=== PATIENT | female | born 1960 | race Caucasian/White ===

== ENCOUNTER 2017-09-20 11:01 | Emergency (ER) | payer SELFPAY ==
[~2017-09-20] VITALS: Ht 162.6 cm; Wt 59.0 kg
[2017-09-20] MEDS ORDERED: ARTIFICIAL TEAR15 ML BOTH EYES (11:24)
[2017-09-20] MEDS ORDERED: TOBRAMYCIN5 ML OPHTHALM (11:24)
[2017-09-20 11:39] VITALS: BP 168/95
--- NOTE | 2017-09-26 00:25 | Emergency Room Report ---
History of Present Illness General Chief Complaint: Eye Problems Source: Patient Present Illness HPI Patient is a 57-year-old female presented after increased eye redness and discharge. The patient had family members at home with similar type illness. The patient had not been vomiting or having diarrhea. She reported having some cough. The patient reported having he itching to both eyes. Allergies: Coded Allergies: No Known Allergies (Unverified , 09/20/17) Patient History Past Medical History: see triage record Reviewed Nursing Documentation: PMH: Agreed, PSxH: Agreed Nursing Documentation-PMH Past Medical History: No Stated History Review of Systems All Other Systems: negative except mentioned in HPI Physical Exam Vital Signs Date Time Temp Pulse Resp B/P (MAP) Pulse Ox O2 Delivery O2 Flow Rate FiO2 09/20/17 11:09 98.1 65 16 168/95 95 Room Air General Appearance: well appearing, no apparent distress, alert, GCS 15 Head: normocephalic, atraumatic Eyes: bilateral eye PERRL, bilateral eye other - conjunctival injection ENT: hearing grossly normal, normal voice Neck: full range of motion, supple Respiratory: no respiratory distress, speaking full sentences Musculoskeletal: no calf tenderness Neurologic: normal gait Psychiatric: mood/affect normal Skin: no rash Medical Decision Making Diagnostic Impression: Primary Impression: Conjunctivitis ER Course The patient presented for . [email or web address].Differential Diagnosis included but wasn't limited to glaucoma, iritis, corneal abrasion, bacterial conjunctivitis, viral conjunctivitis. The patient is given prescription for topical antibiotics. The patient advised hand washing. Patient is advised followup with ophthalmology for reexamination in the next one to 2 days Last Vital Signs Date Time Temp Pulse Resp B/P (MAP) Pulse Ox O2 Delivery O2 Flow Rate FiO2 09/20/17 11:40 98.1 65 16 168/95 95 Room Air Status: improved Disposition: HOME, SELF-CARE Condition: Stable Scripts Dextran 70/Hypromellose (ARTIFICIAL TEARS EYE DROPS*) 15 Ml Drops 1 DROP BOTH EYES NEEDED, #15 ML 0 Refills Prov: Stephen Caro 09/20/17 Tobramycin (TOBRAMYCIN) 5 Ml Drops 2 DROP OPHTHALM THREE TIMES A DAY for 5 Days, #1 EA Instill in affected eye for 7 days Prov: Stephen Caro 09/20/17 Referrals: NOT CHOSEN IPA/MD,REFERRING (PCP) Patient Instructions: Viral Conjunctivitis Additional Instructions: use artificial tears as needed. Recheck with analytics specialist in 2-3 days for recheck Stephen Caro Sep 26, 2017 00:25
== END 2017-09-20 11:54 | disposition home or self-care (01) ==
LOC: EMR 11:20
DX: H10.9 Unspecified conjunctivitis (principal)
CPT/HCPCS: 99283